=== PATIENT | male | born 1990 | race Caucasian/White ===

== ENCOUNTER 2018-09-19 15:52 | Inpatient (IN) | payer BC ==
[~2018-09-19] VITALS: Ht 193 cm; Wt 111.2 kg
[2018-09-19] MEDS ORDERED: PIPER-TAZO 3.375 GM IV (PMX) 100 ML IVPB STA (16:16)
[2018-09-19] MEDS ORDERED: KETOROLAC 30 MG INJ IV STA (16:16)
[2018-09-19] MEDS ORDERED: SOD CHLORIDE 0.9% 1,000 ML IV STA (16:19)
--- NOTE | 2018-09-19 16:33 | ERD ---
ER Documentation Chief Complaint Chief Complaint right side jaw/face swelling x 1 week HPI 28-year-old male with no significant past medical history presenting with right jaw and upper neck swelling that started 1 week ago. He did not see a doctor until about 3 days ago, when he went to urgent care as the swelling was getting worse. He was told he had an infection, likely from his tooth, and was placed on penicillin. However his symptoms have not been improving and the swelling has been worsening. He saw a dentist yesterday who told him to finish the antibiotics and they would do a root canal a couple of days later. However the patient is denying any significant toothache. Most of his pain is under his right jaw. No alleviating or exacerbating factors. He has had subjective fevers for the past few days at home. He has been taking ibuprofen for his symptoms with improvement. He had swelling in the same area a few months ago that self resolved. ROS All systems reviewed and are negative except as per history of present illness. Medications Home Meds No Active Prescriptions or Reported Meds Allergies Allergies: Coded Allergies: No Known Allergy (Unverified , 09/19/18) PMhx/Soc Medical and Surgical Hx: pt denies Medical Hx, pt denies Surgical Hx Hx Alcohol Use: Yes Hx Substance Use: Yes (marijuana) Hx Tobacco Use: Yes Smoking Status: Former smoker FmHx Family History: No diabetes Physical Exam Vitals Vital Signs Date Temp Pulse Resp B/P (MAP) Pulse Ox O2 O2 Flow FiO2 Time Delivery Rate 09/19/18 100.5 106 20 160/90 100 Room Air 20:19 (113) 09/19/18 100.5 109 18 156/72 100 Room Air 18:44 (100) 09/19/18 100.5 106 18 163/84 100 Room Air 18:13 (110) 09/19/18 101.0 128 22 162/89 97 15:54 (113) Physical Exam Const: No acute distress, Nontoxic Head: Atraumatic Eyes: Normal Conjunctiva, PERRLA, EOMI. ENT: Normal External Ears, Nose and Mouth. Posterior oropharynx normal w ithout swelling, erythema, uvular deviation, or tonsillar exudates. Right lower premolar with feeling in place. No surrounding edema or erythema. No tenderness to palpation of any of the right lower teeth. Right submandibular large area of swelling with induration, fluctuance, mild erythema, and mild tenderness to palpation. No sublingual edema. No tongue protrusion. Normal phonation. No drooling. No trismus. Neck: Full range of motion. No meningismus. No cervical lymphad enopathy. Resp: Clear to auscultation bilaterally Cardio: Tachycardic with regular rhythm, no murmurs Abd: Soft, non tender, non distended. Normal bowel sounds Skin: No petechiae or rashes Neur: Awake and alert, cranial nerves intact, strength and sensations intact in all 4 extremities Psych: Normal Mood and Affect Result Diagram: 09/19/18 1611 09/19/18 1611 Results 24 hrs Laboratory Tests Test 09/19/18 16:11 09/19/18 16:13 White Blood Count 18.4 10^3/ul Red Blood Count 4.41 10^6/ul Hemoglobin 13.7 g/dl Hematocrit 40.5 % Mean Corpuscular Volume 91.8 fl Mean Corpuscular Hemoglobin 31.1 pg Mean Corpuscular Hemoglobin Concent 33.8 g/dl Red Cell Distribution Width 11.6 % Platelet Count 352 10^3/UL Mean Platelet Volume 10.3 fl Immature Granulocytes % 0.600 % Neutrophils % 81.3 % Lymphocytes % 5.3 % Monocytes % 11.8 % Eosinophils % 0.7 % Basophils % 0.3 % Nucleated Red Blood Cells % 0.0 /100WBC Immature Granulocytes # 0.110 10^3/ul Neutrophils # 15.0 10^3/ul Lymphocytes # 1.0 10^3/ul Monocytes # 2.2 10^3/ul Eosinophils # 0.1 10^3/ul Basophils # 0.1 10^3/ul Nucleated Red Blood Cells # 0.0 10^3/ul Sodium Level 141 mmol/L Potassium Level 4.0 mmol/L Chloride Level 103 mmol/L Carbon Dioxide Level 25 mmol/L Anion Gap 13 Blood Urea Nitrogen 10 mg/dl Creatinine 0.81 mg/dl Est Glomerular Filtrat Rate mL/min > 60 mL/min Glucose Level 108 mg/dl Calcium Level 10.4 mg/dl POC Venous Lactate 1.3 mmol/L Current Medications Medications Dose Sig/Sheila Start Time Status Last (Trade) Ordered Route PRN Stop Time Admin Dose Reason Admin Piperacillin 100 ml @ ONCE STAT 09/19/18 DC 4/16/19 Sod/ 200 mls/hr IVPB 16:16 16:28 Tazobactam 09/19/18 16:45 Sod Ketorolac 30 mg ONCE STAT 09/19/18 DC 09/19/18 Tromethamine IV 16:16 16:28 (Toradol) 09/19/18 16:19 Sodium 1,000 ml @ Q1H STAT 09/19/18 DC 09/19/18 Chloride 1,000 mls/hr IV 16:19 16:28 09/19/18 17:18 IV Flush 10 ml STK-MED 09/19/18 DC (NS 10 ml) ONCE .ROUTE 17:34 09/19/18 17:35 Sodium 100 ml @ ud STK-MED 09/19/18 DC Chloride ONCE .ROUTE 17:34 09/19/18 17:35 Iohexol 150 ml STK-MED 09/19/18 DC (Omnipaque ONCE .ROUTE 17:34 300mg/ ml) 09/19/18 17:35 Ondansetron 4 mg BRIDGE ORDER 09/19/18 HCl (Zofran PRN IV 19:30 Inj) NAUSEA/VOMITI 09/20/18 19:29 NG 650 mg ER BRIDGE 09/19/18 09/19/18 Acetaminophen PRN PO 19:30 20:22 (Tylenol .MILD PAIN 09/20/18 19:29 Tab) 1-3 OR TEMP Procedures/MDM EMERGENT LABS AND DIAGNOSTIC STUDIES: Lab Results above were reviewed and interpreted by me. CBC: Leukocytosis, consistent with infection BMP: [no e/o clinically significant electrolyte abnormality severe acidosis, alk alosis, renal failure, diabetic ketoacidosis] Lactate within normal limits without evidence of sepsis or tissue hypoperfusion Radiology Results as interpreted by Radiology below were reviewed by Margaux Shoemaker MD: CT soft tissue neck with contrast : Periapical lucency within the right mandibular second molar which contains a dental steve with erosion of the mandible within this region adjacent to the tooth roots most compatible with dental disease. There is a more inferior subjacent heterogeneous 5.3 x 4.2 cm subcutaneous right submandibular lesion within the right IB level suggestive of phlegmon/early abscess/supportive necrotic right IB lymph node. This displaces the right submandibular posteriorly. There is subcutaneous stranding within the right anterior submandibular region/neck and thickening of the right platysma muscle suggesting reactive changes/cellulitis. Initial Nursing notes reviewed. Previous Medical Records requested via the Electronic Health Record. EMERGENCY DEPARTMENT COURSE / MEDICAL DECISION MAKING: Patient is presenting with right submandibular swelling, concerning for abscess. Vitals were notable for fever and tachycardia, concerning for sepsis. Sepsis workup was initiated but lactate was within normal limits, without evid ence of severe sepsis or septic shock. CT of the neck was done and shows most likely a necrotic lymph node related to a dental infection. As the patient has failed outpatient antibiotics, IV antibiotics have been started and he will be admitted for further workup, observation, and IV antibiotics. I consulted ENT physician, Dr. Hooks, who agreed to see the patient. [facility] Departure Diagnosis: Primary Impression: Abscess of submandibular region Additional Impression: Sepsis Sepsis type: sepsis due to unspecified organism Qualified Codes: A41.9 - Sepsis, unspecified organism Condition: BRIDGETT Valadez MD Sep 19, 2018 16:33
[2018-09-19] MEDS ORDERED: IOHEXOL 300MG/ML 150 ML BTL ONE (17:34)
[2018-09-19] MEDS ORDERED: SOD CHLORIDE 0.9% 100 ML ONE (17:34)
[2018-09-19] MEDS ORDERED: ONDANSETRON 4 MG INJ IV PRN (19:30)
[2018-09-19] MEDS ORDERED: ACETAMINOPHEN 325 MG TAB PO PRN (19:30)
[2018-09-19 21:47] VITALS: Ht 193 cm; Wt 111.2 kg
[2018-09-19 21:48] VITALS: BP 144/78; PULSE 107; RESP 19
[2018-09-19] MEDS ORDERED: morphine 4 MG/ML VIAL IV PRN (22:30)
[2018-09-19] MEDS ORDERED: ZOLPIDEM 5 MG TAB PO PRN (22:30)
[2018-09-19] MEDS: morphine 2 MG INJ IV PRN (23:13)
[2018-09-19] MEDS: ONDANSETRON 4 MG INJ IV PRN (23:14)
[2018-09-19] MEDS: PIPER-TAZO 3.375 GM IV (PMX) 100 ML IVPB SCH (23:16)
[2018-09-19] MEDS: DEXTROSE 5%-0.45% NACL 1,000 ML IV SCH (23:16)
[2018-09-20] VITALS (19 sets, daily range): BP systolic 108–151; BP diastolic 48–88; PULSE 72–110; RESP 13–21
[2018-09-20] MEDS: ACETAMINOPHEN 325 MG TAB PO PRN ×3 (01:42→13:18)
[2018-09-20] MEDS: morphine 2 MG INJ IV PRN ×3 (02:11→21:24)
[2018-09-20] MEDS: PIPER-TAZO 3.375 GM IV (PMX) 100 ML IVPB SCH ×3 (05:50→18:00)
--- NOTE | 2018-09-20 07:29 | CONS ---
Assessment/Plan Assessment/Plan Assessment/Plan (Daily) As noted Consultation Date/Type/Reason Admit Date/Time Sep 19, 2018 at 19:03 Date of Consultation: Sep 20, 2018 Date/Time of Note DATE: 09/20/18 TIME: 07:21 Hx of Present Illness Consultation - [facility] Otolaryngology-Head and Neck Surgery Referring MD: Emergency attending CC: Neck swelling HPI: 28-year-old male with no significant past medical history presenting with right jaw and upper neck swelling that started 1 week ago. Urgent care 3 days ago and started penicillin. Had plan for a root canal this . Pain and swelling have been worsening. Most of his pain is under his right jaw. No alleviating or exacerbating factors. He has had subjective fevers for the past few days at home. He has been taking ibuprofen for his symptoms with improvement. He had swelling in the same area a few months ago that self resolved. PAST MEDICAL HISTORY: None PAST SURGICAL HISTORY: None MEDICATIONS: None ALLERGIES: NKDA SOCIAL HISTORY: Rare EtOH. Past smoker. FAMILY HISTORY: No head and neck cancer. REVIEW OF SYSTEMS: The patient was asked and responded to a 14 point review of systems regarding constitutional symptoms, eye symptoms, ears, nose, mouth, throat symptoms, cardiovascular symptoms, respiratory symptoms, gastrointestinal symptoms, genitourinary symptoms, musculoskeletal symptoms, integumentary symptoms, neurological symptoms, psychiatric symptoms, endocrine symptoms, hematologic/lymphatic symptoms, and allergic/ immunologic symptoms. Pertinent positive and negative factors are listed in the HPI. PHYSICAL EXAM: The patient underwent a physical examination as described below. The pertinent positive and negative findings are summarized after the description of the examination. Constitutional: The patient's developmental and nutritional status were assessed. The patient's voice quality was assessed. Head and Face: The head and face were inspected for deformities. The salivary glands were palpated. Facial strength was assessed bilaterally. Eyes: Extraocular movements and primary gaze alignment were assessed. Ears, Nose, Mouth & Throat: The external auditory canals and pinnae were examined. The nasal septum, mucosa, and turbinates were inspected by anterior rhinoscopy. The lips, teeth, and gums were examined for abnormalities. The oral mucosa, tongue, palate, tonsils, lateral and posterior pharynx were inspected for the presence of asymmetry or mucosal lesions. Neck: The tracheal position was noted, and the neck was palpated to determine if there were any asymmetries, abnormal neck masses, or thyromegaly. Respiratory: The nature of the breathing and chest expansion/symmetry was observed. Cardiovascular: The patient was examined to determine the presence of any edema or jugular venous distension. Abdomen: The contour of the abdomen was noted. Lymphatic: The patient was examined for supraclavicular lymphadenopathy. Musculoskeletal: The patient was inspected for the presence of skeletal deformities. Extremities: The extremities were examined for any clubbing or cyanosis. Skin: The skin was examined for inflammatory or neoplastic conditions. Neurologic: The patient's orientation, mood, and affect were noted. The cranial nerve functions were examined (II-VII, IX-XII). Pertinent positive and negative findings on physical examination: Ears: AU pinnae WNL, no otorrhea. Nose: Grossly normal external appearance. Normal mucosa. No epistaxis/rhinorrhea. OC/OP: Dentition fair, not tender to palpation. MMM, tongue midline. FOM/BOT soft. Symmetric palate elevation. No mucosal lesions observed. No pharyngeal exudate. Neck: Right submandibular swelling approximately 4 cm with induration and mild erythema. Mildly tender to palpation. No other adenopathy apparent. ASSESSMENT/RECOMMENDATIONS: 28-year-old male with odontogenic abscess. He has had some improvement with current medical care. He would benefit from drainage of the infection. I would advise consultation with interventional radiology in case he can have sufficient access to the different pockets and loculations of the infection as an awake procedure. If this is not feasible or unavailable, then the patient will require surgical intervention which will be accomplished later in the day, and as such should maintain n.p.o. status presently. He should have consultation from oral surgery to treat the odontogenic source as the infection will not be fully cleared until this is treated. The oral surgery consultation is of great importance for his overall healing. He should certainly continue antibiotics and other medical care. Thank you for this consultation. Wesley Joyner MD, M[facility] Otolaryngology-Head and Neck Surgery [facility] Office: Past Medical History Home Meds No Active Prescriptions or Reported Meds Medications Current Medications Ondansetron HCl (Zofran Inj) 4 mg BRIDGE ORDER PRN IV NAUSEA/VOMITING; Start 09/19/18 at 19:30; Stop 09/20/18 at 19:29 Acetaminophen (Tylenol Tab) 650 mg ER BRIDGE PRN PO .MILD PAIN 1-3 OR TEMP Last administered on 09/19/18at 20:22; Admin Dose 650 MG; Start 09/19/18 at 19:30; Stop 09/20/18 at 19:29 Dextrose/Sodium Chloride 1,000 ml @ 100 mls/hr Q10H IV Last administered on 09/19/18at 23:16; Admin Dose 100 MLS/HR; Start 09/19/18 at 22:30 Zolpidem Tartrate (Ambien) 5 mg HS PRN PO INSOMNIA; Start 09/19/18 at 22:30 Ondansetron HCl (Zofran Inj) 4 mg Q4H PRN IV NAUSEA AND/OR VOMITING Last administered on 09/19/18at 23:14; Admin Dose 4 MG; Start 09/19/18 at 22:30 Piperacillin Sod/ Tazobactam Sod 100 ml @ 200 mls/hr Q6 IVPB Last administered on 09/20/18at 05:50; Admin Dose 200 MLS/HR; Start 09/20/18 at 00:00 Morphine Sulfate (morphine) 2 mg Q3 PRN IV MODERATE PAIN 4-6/10 Last administered on 09/20/18at 05:51; Admin Dose 2 MG; Start 09/19/18 at 22:30 Morphine Sulfate (morphine) 4 mg Q3H PRN IV SEVERE PAIN LEVEL 7-10/10; Start 09/19/18 at 22:30 Acetaminophen (Tylenol Tab) 650 mg Q4H PRN PO MILD PAIN(1-3)OR ELEVATED TEMP Last administered on 09/20/18at 05:51; Admin Dose 650 MG; Start 09/19/18 at 22:30 Allergies: Coded Allergies: No Known Allergy (Unverified , 09/19/18) Social History Alcohol Use: rarely Smoking Status: Former smoker Exam/Review of Systems Exam Vitals Vital Signs Date Temp Pulse Resp B/P (MAP) Pulse Ox O2 O2 Flow FiO2 Time Delivery Rate 09/20/18 99.9 06:40 09/20/18 101 18 139/75 96 Room Air 03:15 (96) Intake and Output 09/19/18 09/19/18 09/20/18 1515:00 23:00 07:00 IntakeIntake Total 1100 ml 965 ml BalanceBalance 1100 ml 965 ml Results Result Diagram: 09/19/18 1611 09/19/18 1611 Results 24hrs Laboratory Tests Test 09/19/18 16:11 09/19/18 16:13 White Blood Count 18.4 H Red Blood Count 4.41 L Hemoglobin 13.7 L Hematocrit 40.5 L Mean Corpuscular Volume 91.8 Mean Corpuscular Hemoglobin 31.1 Mean Corpuscular Hemoglobin Concent 33.8 Red Cell Distribution Width 11.6 Platelet Count 352 Mean Platelet Volume 10.3 Immature Granulocytes % 0.600 H Neutrophils % 81.3 H Lymphocytes % 5.3 L Monocytes % 11.8 H Eosinophils % 0.7 Basophils % 0.3 Nucleated Red Blood Cells % 0.0 Immature Granulocytes # 0.110 H Neutrophils # 15.0 H Lymphocytes # 1.0 Monocytes # 2.2 H Eosinophils # 0.1 Basophils # 0.1 Nucleated Red Blood Cells # 0.0 Sodium Level 141 Potassium Level 4.0 Chloride Level 103 Carbon Dioxide Level 25 Anion Gap 13 Blood Urea Nitrogen 10 Creatinine 0.81 Est Glomerular Filtrat Rate mL/min > 60 Glucose Level 108 Calcium Level 10.4 H POC Venous Lactate 1.[address] neck with contrast SKULL: The visualized portions of the brain are grossly unremarkable.The visua lized orbits are unremarkable.The visualized paranasal sinuses are well aerated.The bilateral mastoid air cells are within normal limits. PAROTID GLANDS: Unremarkable. SUBMANDIBULAR GLANDS: There is a large heterogeneous peripheral enhancing probably necrotic lesion within the right submandibular region within the right IB lymph node level measuring 5.3 x 4.2 cm. This displaces the right subm andibular and posteriorly. This extends into the medial aspect of the floor of the mouth however is lateral to the mylohyoid muscle. There is no sialolith or ductal dilatation. There is subcutaneous stranding within the right anterior submandibular region/neck. There is also thickening of the platysma muscle in which this lesion is centrally located suggesting reactive changes. The left submandibular is unremarkable. THYROID GLAND: Unremarkable. VASCULATURE: The bilateral vascular structures are patent. LYMPH NODES: As above. No left-sided cervical adenopathy is identified. AERODIGESTIVE TRACT: No primary aerodigestive tract lesion is identified. THORAX: The lung apices are unremarkable. OSSEOUS STRUCTURES: There is a periapical lucency within the right mandibular second molar with erosion of the mandible within this region (image 44 series 602) adjacent to the tooth roots. There is also a dental steve within the posterior aspect of the tooth. This is superior to the large heterogeneous right submandibular lesion. There is reversal of the cervical lordosis suggesting mus raymon spasm. IMPRESSION: Periapical lucency within the right mandibular second molar which contains a dental steve with erosion of the mandible within this region adjacent to the tooth roots most compatible with dental disease. There is a more inferior subjacent heterogeneous 5.3 x 4.2 cm subcutaneous right submandibular lesion within the right IB level suggestive of phlegmon/early abscess/supportive necrotic right IB lymph node. This displaces the right submandibular posteriorly. There is subcutaneous stranding within the right anterior submandibular region/neck and thickening of the right platysma muscle suggesting reactive changes/cellulitis. Medications Medication Current Medications Ondansetron HCl (Zofran Inj) 4 mg BRIDGE ORDER PRN IV NAUSEA/VOMITING; Start 09/19/18 at 19:30; Stop 09/20/18 at 19:29 Acetaminophen (Tylenol Tab) 650 mg ER BRIDGE PRN PO .MILD PAIN 1-3 OR TEMP Last administered on 09/19/18at 20:22; Admin Dose 650 MG; Start 09/19/18 at 19:30; Stop 09/20/18 at 19:29 Dextrose/Sodium Chloride 1,000 ml @ 100 mls/hr Q10H IV Last administered on 09/19/18at 23:16; Admin Dose 100 MLS/HR; Start 09/19/18 at 22:30 Zolpidem Tartrate (Ambien) 5 mg HS PRN PO INSOMNIA; Start 09/19/18 at 22:30 Ondansetron HCl (Zofran Inj) 4 mg Q4H PRN IV NAUSEA AND/OR VOMITING Last administered on 09/19/18at 23:14; Admin Dose 4 MG; Start 09/19/18 at 22:30 Piperacillin Sod/ Tazobactam Sod 100 ml @ 200 mls/hr Q6 IVPB Last administered on 09/20/18at 05:50; Admin Dose 200 MLS/HR; Start 09/20/18 at 00:00 Morphine Sulfate (morphine) 2 mg Q3 PRN IV MODERATE PAIN 4-6/10 Last administered on 09/20/18at 05:51; Admin Dose 2 MG; Start 09/19/18 at 22:30 Morphine Sulfate (morphine) 4 mg Q3H PRN IV SEVERE PAIN LEVEL 7-10/10; Start 09/19/18 at 22:30 Acetaminophen (Tylenol Tab) 650 mg Q4H PRN PO MILD PAIN(1-3)OR ELEVATED TEMP Last administered on 09/20/18at 05:51; Admin Dose 650 MG; Start 09/19/18 at 22:30 WESLEY JOYNER MD Sep 20, 2018 07:29
[2018-09-20] MEDS: DEXTROSE 5%-0.45% NACL 1,000 ML IV SCH ×3 (08:30→18:54)
[2018-09-20] MEDS: ONDANSETRON 4 MG INJ IV PRN ×2 (13:30→21:24)
--- NOTE | 2018-09-20 13:30 | HP ---
DATE OF ADMISSION: 09/19/2018 CHIEF COMPLAINT: Right neck swelling and tenderness. HISTORY OF PRESENT ILLNESS: A 28-year-old male with unremarkable past medical history, who presented to the emergency room with right upper neck swelling and tenderness that started about 1 week prior to admission. The patient was started on penicillin 3 days prior to admission. He noticed worsening of pain and swelling. The patient was recently diagnosed with dental problems that required root ca nal. Initial evaluation included soft tissue CAT scan of the neck. This showed periapical lucency within the right mandibular 2nd molar which contained the dental caries with erosion of the mandible within this region adjacent to the tooth most compatible with dental disease. There was also ____ sub-adjac ent heterogeneous subcutaneous right submandibular lesion within the right ____ level suggestive of p hlegmon and early abscess. The patient was febrile. His white blood cell count was 18,400. He rece ived IV Zosyn in the ER. PAST MEDICAL HISTORY: None. MEDICATIONS PRIOR TO ADMISSION: Ibuprofen. SOCIAL HISTORY: The patient admits to smoking marijuana on social occasions. PHYSICAL EXAMINATION: GENERAL: Well-developed, well-nourished young male who is in no apparent distress. VITAL SIGNS: Stable. He is afebrile. HEENT: Right submandibular area with large mass which is fluctuant and tender to palpation. NECK: Supple. LUNGS: Clear to auscultation bilaterally. CARDIAC: Regular rate and rhythm. No murmurs, rubs or gallops. ABDOMEN: Soft, nontender, nondistended, normoactive bowel sounds. EXTREMITIES: No clubbing, cyanosis or edema. NEUROLOGICAL: Nonfocal. ASSESSMENT: 1. A 28-year-old male with right submandibular necrotic lymph node and associated abscess formation. 2. Odontogenic abscess causing mandibular erosion. 3. Leukocytosis. PLAN: Admit to med/surg. Keep n.p.o. Continue IV Zosyn. ENT consultation was requested. Radiolog y is not able to drain the superficial abscess. The patient is medically cleared to undergo surgical I and D of the area. He will be referred to his dentist after infection is resolved for his future oral surgery. Dictated By: HERMELINDO GOOD/AL Conf#: [id number] DID#: [id number] CC: JUSTIN KHAN MD;*[facility]*
--- NOTE | 2018-09-20 16:04 | PREAC ---
Date/Time of Note Date/Time of Note DATE: 09/20/18 TIME: 16:03 Anesthesia Eval and Record Evaluation Time Pre-Procedure Interview DATE: 09/20/18 TIME: 16:03 Age 28 Sex male NPO: 8 hrs Preoperative diagnosis Right Neck Abscess Planned procedure I&D of Neck Abscess Past Medical History Past Medical History: Includes GI: Obesity Heme: Anemia Recreational drugs: Marijuana Surgery & Anesthesia Issues No known issue Meds Anticoagulation: No Beta Joyce within 24 hr: No Reason Beta Joyce not given: Pt. not on B-Joyce No Active Prescriptions or Reported Meds Current Medications Ondansetron HCl (Zofran Inj) 4 mg BRIDGE ORDER PRN IV NAUSEA/VOMITING; Start 09/19/18 at 19:30; Stop 09/20/18 at 19:29 Acetaminophen (Tylenol Tab) 650 mg ER BRIDGE PRN PO .MILD PAIN 1-3 OR TEMP Last administered on 09/19/18at 20:22; Admin Dose 650 MG; Start 09/19/18 at 19:30; Stop 09/20/18 at 19:29 Dextrose/Sodium Chloride 1,000 ml @ 100 mls/hr Q10H IV Last administered on 09/20/18at 11:14; Admin Dose 100 MLS/HR; Start 09/19/18 at 22:30 Zolpidem Tartrate (Ambien) 5 mg HS PRN PO INSOMNIA; Start 09/19/18 at 22:30 Ondansetron HCl (Zofran Inj) 4 mg Q4H PRN IV NAUSEA AND/OR VOMITING Last administered on 09/20/18at 13:30; Admin Dose 4 MG; Start 09/19/18 at 22:30 Piperacillin Sod/ Tazobactam Sod 100 ml @ 200 mls/hr Q6 IVPB Last administered on 09/20/18at 11:13; Admin Dose 200 MLS/HR; Start 09/20/18 at 00:00 Morphine Sulfate (morphine) 2 mg Q3 PRN IV MODERATE PAIN 4-6/10 Last administered on 09/20/18at 05:51; Admin Dose 2 MG; Start 09/19/18 at 22:30 Morphine Sulfate (morphine) 4 mg Q3H PRN IV SEVERE PAIN LEVEL 7-10/10 Last administered on 09/20/18at 08:50; Admin Dose 4 MG; Start 4/16/19 at 22:30 Acetaminophen (Tylenol Tab) 650 mg Q4H PRN PO MILD PAIN(1-3)OR ELEVATED TEMP Last administered on 09/20/18at 13:18; Admin Dose 650 MG; Start 09/19/18 at 22:30 Meds reviewed: Yes Allergies Coded Allergies: No Known Allergy (Unverified , 09/19/18) Allergies Reviewed: Yes Labs/Studies Labs Reviewed: Reviewed by anesthesiologist Result Diagram: 09/19/18 1611 09/19/18 1611 Laboratory Tests 09/19/18 16:11 test: N/A Studies: ECG (n/a), CXR (n/a) Pre-procedure Exam Last vitals Vital Signs Date Temp Pulse Resp B/P (MAP) Pulse Ox O2 O2 Flow FiO2 Time Delivery Rate 09/20/18 99.4 110 18 139/77 95 Room Air 14:55 (97) Airway: Adequate mouth opening, Adequate thyromental dist Mallampati: Mallampati II Teeth: Normal Lung: Normal Heart: Normal ASA Physical Status ASA physical status: 2 Emergency: E Planned Anesthetic General/MAC: ETT Planned Pain Management Parenteral pain med Pre-operative Attestations Prior to commencing anesthesia and surgery, the patient was re-evaluated, there was verification of: *The patient's identity *The results of appropriate recent lab work and preoperative vital signs *The above evaluation not changing prior to induction *Anesthetic plan, risk benefits, alternative and complications discussed with patient/family; questions answered; patient/family understands, accepts and wishes to proceed. FRANCISCO WADE MD Sep 20, 2018 16:04
[2018-09-20] MEDS ORDERED: SUCCINYLCHOLINE CHLORIDE 100 MG/5 ML SYG IV ONE (16:08)
[2018-09-20] MEDS ORDERED: ROCURONIUM 50 MG INJ ONE (16:08)
[2018-09-20] MEDS ORDERED: FENTAnyl 50 MCG/ML VIAL ONE (16:08)
[2018-09-20] MEDS ORDERED: PROPOFOL 20 ML ONE (16:08)
[2018-09-20] MEDS ORDERED: MIDAZOLAM 1 MG/ML 2 ML INJ ONE (16:08)
[2018-09-20] MEDS ORDERED: ONDANSETRON 4 MG INJ IV PRN (16:30)
[2018-09-20] MEDS ORDERED: OXYCODONE/ACETAMINOPHEN (5/325) TAB PO PRN (16:30)
[2018-09-20] MEDS ORDERED: LABETALOL HCL 20MG INJ IV PRN (16:30)
[2018-09-20] MEDS ORDERED: METOCLOPRAMIDE 10 MG INJ IV PRN (16:30)
[2018-09-20] MEDS ORDERED: DIPHENHYDRAMINE 50 MG INJ IV PRN (16:30)
[2018-09-20] MEDS ORDERED: HYDROmorphONE 1 MG/5 ML IV SYRINGE IV PRN ×3 (16:30)
[2018-09-20] MEDS ORDERED: MEPERIDINE 25 MG INJ IV PRN (16:30)
[2018-09-20] MEDS ORDERED: EPHEDrine SULFATE 50 MG/5 ML SYG IV PRN (16:30)
[2018-09-20] MEDS ORDERED: FENTAnyl 50 MCG/ML VIAL IV PRN ×3 (16:30)
[2018-09-20] MEDS ORDERED: LIDOCAINE 1%/EPI (1:100,000) (MDV) 20 ML ONE (16:53)
[2018-09-20] MEDS ORDERED: METOCLOPRAMIDE 10 MG INJ ONE (16:54)
[2018-09-20] MEDS ORDERED: DEXAMETHASONE 4 MG/ML 5 ML INJ ONE (16:54)
[2018-09-20] MEDS ORDERED: KETOROLAC 30 MG INJ ONE ×2 (16:54→17:16)
[2018-09-20] MEDS ORDERED: ONDANSETRON 4 MG INJ ONE (16:54)
[2018-09-20] MEDS ORDERED: SUGAMMADEX SODIUM 200 MG/2 ML VIAL IV ONE (17:16)
--- NOTE | 2018-09-20 17:36 | SIPON ---
Date/Time of Note Date/Time of Note DATE: 09/20/18 TIME: 17:35 Operative Report Preoperative Diagnosis Right neck odontogenic abscess Postoperative Diagnosis Same Operation/Procedure Performed Incision and drainage of right neck abscess Surgeon see signature line assistant professor of surgery None Anesthesia: general Estimated blood loss: minimal Transfusion Required none Specimen Cultures Grafts/Implants none Complications none MEAGHAN CARBALLO MD Sep 20, 2018 17:36
--- NOTE | 2018-09-20 17:40 | PAC ---
Date/Time of Note Date/Time of Note DATE: 09/20/18 TIME: 17:40 Post-Anesthesia Notes Post-Anesthesia Note Last documented vital signs Vital Signs Date Temp Pulse Resp B/P (MAP) Pulse Ox O2 O2 Flow FiO2 Time Delivery Rate 09/20/18 99.4 110 18 139/77 95 Room Air 17:35 (97) Activity: WNL Respiratory function: WNL Cardiovascular function: WNL Mental status: Baseline Pain reasonably controlled: Yes Hydration appropriate: Yes Nausea/Vomiting absent: Yes FRANCISCO WADE MD Sep 20, 2018 17:40
--- NOTE | 2018-09-20 18:20 | OPR ---
DATE OF OPERATION: 09/20/2018 SURGEON: Wesley Joyner MD ANESTHESIA: General. PREOPERATIVE DIAGNOSIS: Right neck odontogenic abscess. POSTOPERATIVE DIAGNOSIS: Right neck odontogenic abscess. PROCEDURE: Incision and drainage of right neck abscess. INDICATIONS: This is a 28-year-old gentleman with few days of increasing swelling and pain in the ri [facility] neck. The patient was planned for a root canal later this week. However, the swelling and pain worsened and thus, he presented to the ER. CT scan was done which indicated large right neck abscess . The patient has no dyspnea, no voice change and was overall stable with only limited lateral neck abscess that was well contained within the fascial planes. The patient's swelling increased despite having IV antibiotics and thus, it was clear that an incision and drainage was required. I discussed with the patient the risks, benefits, rationale and alternatives to surgery which included but were not limited to nerve damage, failure to alleviate symptoms, need for further treatment, infection, bl eeding, scar, pain, numbness, damage to local structures, dysphagia, dyspnea, dysphonia and other rar e complications of anesthesia and the patient did elect to proceed. FINDINGS: Massive right neck abscess with perhaps 20 mL of purulent discharge. DESCRIPTION OF PROCEDURE: The patient was identified in the preoperative holding area and informed c onsent was confirmed. The patient was transferred to the operating room and general endotracheal ane sthesia was induced without complication. Eyes were protected by the anesthesiologist and injected w ith 1% lidocaine with 1:100,000 epinephrine. An incision was placed more than 2 cm below the anticip ated location of the mandible in order to avoid any injury to the marginal mandibular nerve with supe rficial incision. There was massive swelling and induration in this area with obvious fluctuance thr oughout the right neck. Lidocaine with epinephrine was injected into the planned incision. The brittani ent was sterilely prepped with Betadine and draped in the usual manner. Incision was performed with a #15 scalpel. I dissected millimeters prior to puncturing into the joint abscess. Huge quantities of yellow pus emanated from the wound. I applied manual pressure to the neck in order to squeeze out this very, very large quantity of pus certainly 20 mL or more and following this, I brought the ____ into the field. I thoroughly irrigated the wound with approximately 3 liters of antibiotic infused saline. This was quite successful in cleaning the abscess cavity. There was minimal bleeding. A 0. 5 inch iodoform gauze packing was introduced. The patient was cleansed with ____ and 4 x 4's and tap e were applied. The patient was awakened from anesthesia without complication. All instrument and s ponge counts were correct. ESTIMATED BLOOD LOSS: Minimal. COMPLICATIONS: None. SPECIMEN: Swabs for culture. Preoperative medications and the patient's antibiotic regimen were continued with redosing in the OR. DISPOSITION: Continue inpatient care. I have previously discussed that the patient will require ora l surgery consultation for tooth extraction or other possible endodontic therapy and this was conveye d to the patient and family as well. Dictated By: WESLEY JOYNER MD AF/NTS Conf#: [id number] DID#: [id number] CC: HERMELINDO GARCIA MD; JUSTIN HKAN MD;*EndCC*
[2018-09-21] MEDS: PIPER-TAZO 3.375 GM IV (PMX) 100 ML IVPB SCH ×3 (00:16→12:34)
[2018-09-21 01:38] VITALS: BP 130/73; PULSE 76; RESP 18
[2018-09-21] MEDS: morphine 2 MG INJ IV PRN ×2 (05:22→11:12)
[2018-09-21 08:07] VITALS: BP 131/64; PULSE 76; RESP 18
--- NOTE | 2018-09-21 08:50 | CONS ---
Assessment/Plan Assessment/Plan Assessment/Plan (Daily) 28yoM s/p I&D of right neck odontogenic abscess. Pt doing extremely well postop. Needs dentist/OMFS treatment DAVID. Gauze packing small amount removed today, will need to have remainder withdrawn in the next 1-2 days then allow wound to heal secondarily. Reviewed with patient that this can be done in hospital or potentially as outpatient depending on dental treatment availability. Will await update re dental care. Continue abx therapy, follow cultures. Consultation Date/Type/Reason Admit Date/Time Sep 20, 2018 at 10:01 Initial Consult Date 09/20/18 Date/Time of Note DATE: 09/21/18 TIME: 08:36 24 HR Interval Summary Free Text/Dictation s/p I&D R neck abscess Massive amt purulence This AM, pt reports doing great, no pain Exam/Review of Systems Exam Vitals Vital Signs Date Temp Pulse Resp B/P (MAP) Pulse Ox O2 O2 Flow FiO2 Time Delivery Rate 09/21/18 98.0 76 18 131/64 95 08:07 (86) 09/20/18 Room Air 18:46 09/20/18 2.0 17:52 Intake and Output 09/20/18 09/20/18 09/21/18 1515:00 23:00 07:00 IntakeIntake Total 1800 ml 1240 ml OutputOutput Total 1352 ml 700 ml BalanceBalance 448 ml 540 ml Exam Gen: Awake alert NAD Face: Symmetric OC/OP: Normal mucosa, no purulence Neck: Gauze packing only mild oozing. Small amt extracted, cut. New gauze p laced. Remainder soft, non-tender, no LAD Results Result Diagram: 09/19/18 1611 09/19/18 1611 Medications Medication Current Medications Dextrose/Sodium Chloride 1,000 ml @ 100 mls/hr Q10H IV Last administered on 09/20/18at 18:54; Admin Dose 100 MLS/HR; Start 09/19/18 at 22:30 Zolpidem Tartrate (Ambien) 5 mg HS PRN PO INSOMNIA; Start 09/19/18 at 22:30 Ondansetron HCl (Zofran Inj) 4 mg Q4H PRN IV NAUSEA AND/OR VOMITING Last ad ministered on 09/20/18at 21:24; Admin Dose 4 MG; Start 09/19/18 at 22:30 Piperacillin Sod/ Tazobactam Sod 100 ml @ 200 mls/hr Q6 IVPB Last administered on 09/21/18 05:22; Admin Dose 200 MLS/HR; Start 09/20/18 at 00:00 Morphine Sulfate (morphine) 2 mg Q3 PRN IV MODERATE PAIN 4-6/10 Last administer ed on 09/21/18 05:22; Admin Dose 2 MG; Start 09/19/18 at 22:30 Morphine Sulfate (morphine) 4 mg Q3H PRN IV SEVERE PAIN LEVEL 7-10/10 Last administered on 09/20/18 08:50; Admin Dose 4 MG; Start 09/19/18 at 22:30 Acetaminophen (Tylenol Tab) 650 mg Q4H PRN PO MILD PAIN(1-3)OR ELEVATED TEMP Last administered on 09/20/18 13:18; Admin Dose 650 MG; Start 09/19/18 at 22:30 MEAGHAN CARBALLO MD Sep 21, 2018 08:47
[2018-09-21] MEDS: DEXTROSE 5%-0.45% NACL 1,000 ML IV SCH ×2 (11:08→14:30)
[2018-09-21] MEDS ORDERED: AMOX1TAB10 PO (13:33)
--- NOTE | 2018-09-21 13:35 | PDOCDIS ---
Discharge Instructions CONDITION [id number] Patient Condition: [id number] Good HOME CARE INSTRUCTIONS: [id number] Diet Instructions: [id number] Regular ACTIVITY: [id number] Activity Restrictions: Wkvuu0j No Restrictions FOLLOW UP/APPOINTMENTS Follow-up Plan pcp 1 week oral surg HERMELINDO PINEDA MD Sep 21, 2018 13:35
--- NOTE | 2018-09-21 14:04 | PDOCDIS ---
Discharge Instructions CONDITION Acedu4Ed Patient Condition: Yinqv9l Good HOME CARE INSTRUCTIONS: Enidn4Fu Diet Instructions: Ixfku3s Regular ACTIVITY: Ehpzc0Ub Activity Restrictions: Qcmid4t No Restrictions FOLLOW UP/APPOINTMENTS Follow-up Plan pcp [address] Joyner in am or tuesday next week oral surg HERMELINDO PINEDA MD Sep 21, 2018 14:04
[2018-09-21 14:33] VITALS: BP 132/68; PULSE 80; RESP 18
--- NOTE | 2018-09-21 21:03 | DS ---
DATE OF ADMISSION: 09/20/2018 DATE OF DISCHARGE: 09/21/2018 DISCHARGE DIAGNOSES: 1. A 28-year-old male with odontogenic abscess. 2. Right submandibular necrotic lymph node with abscess formation. 3. Status post incision and drainage of right neck abscess. HOSPITAL COURSE: A 28-year-old male with history of right lower tooth problem awaiting root canal pr esented with complaint of severe right neck swelling and pain. The patient was found to have right s ubmandibular abscess formation due to odontogenic infection. White blood cell count was 18,000. He was seen in consultation by Dr. Carballo. The patient was taken to the OR and underwent incision an d drainage of right neck abscess. Large amount of purulent abscess was drained. The patient had sig nificant improvement following the procedure. He was cleared for discharge by Dr. Carballo. The pa tient was prescribed 7 days of Augmentin 875 mg twice daily. I asked him to follow up with the oral surgeon as soon as possible for his dental work. The patient will also follow up with PCP. [facility] nurse was requested. Dictated By: HERMELINDO GARCIA MD SK/NTS Conf#: [id number] DID#: [id number] CC: MEAGHAN CARBALLO MD; JUSTIN KHAN MD;*[facility]*
== END 2018-09-21 16:30 | disposition home health service (06) | DRG 134 ==
LOC: E/R 15:52 → 2NE 19:03 → CANRESERV 20:36 → OBSVTOIN 09-20 10:01
PROVIDERS: ADMIT Internal Medicine; ATTEND Internal Medicine
PROC: 0W960ZZ Drainage of Neck, Open Approach (ICD-10-PCS; principal; 2018-09-20 16:30)
DX: K12.2 Cellulitis and abscess of mouth (principal); I89.8 Other specified noninfective disorders of lymphatic vessels and lymph nodes; Z87.891 Personal history of nicotine dependence; K02.9 Dental caries, unspecified; K04.5 Chronic apical periodontitis; M27.2 Inflammatory conditions of jaws
CPT/HCPCS: 36415; 70491; 80048; 83605; 85025; 87070; 87075; 87116; 96365; 96366; 96375; G0378; J1100; J1885; J2250; J2270; J2405; J2543; J2765; J3010; J7030; J7042; Q9967